=== PATIENT | male | born 1955 | race Caucasian/White ===

== ENCOUNTER 2018-09-10 08:41 | Outpatient (CLI) | payer MEDICAID, SELFPAY ==
[2018-09-10 10:37] LABS: Anion Gap 9.3 mmol/L (3-11); BUN 24 mg/dL (7-18); CO2 26.7 mmol/L (21.0-32.0); CREATININE 0.92 mg/dL (0.70-1.30); Calcium 9.2 mg/dL (8.5-10.1); Chloride 102 mmol/L (98-107); Cholesterol 118 mg/dL (50-200); Glucose 99 mg/dL (70-100); HDL Cholesterol 47 mg/dL (40-60); LDL CHOLESTEROL 59 mg/dL (<100); Potassium 4.4 mmol/L (3.5-5.1); Sodium 138 mmol/L (136-145); Triglyceride 60 mg/dL (30-150)
== END 2018-09-10 09:01 ==
PROVIDERS: PCP Family Medicine; Visit Provider Specialist/Technologist Athletic Trainer
DX: E11.65 Type 2 diabetes mellitus with hyperglycemia (principal); E78.5 Hyperlipidemia, unspecified
CPT/HCPCS: 36415; 80048; 80061; 83721

== ENCOUNTER 2019-04-26 09:24 | Emergency (ER) | payer MEDICARE, MEDICAID, SELFPAY ==
[2019-04-26 09:28] VITALS: BP 163/83; PULSE 66; RESP 16; TEMP 36.3; O2SAT 96
--- NOTE | 2019-04-26 09:33 | ED.GENADUL_ITS ---
Discharge Plan Disposition Patient Disposition: HOME Condition: Stable Discharge Details Chief Complaint: AnimalBite Clinical Impression: Dog bite Primary Care Provider: Marlene Burton ED Provider: China Waterman Home Meds and New Rx's Prescriptions: New amoxicillin-pot clavulanate [Augmentin] 875-125 mg tablet 1 tab PO BID 10 Days Qty: 20 RF: 0 Continued simvastatin 40 mg tablet 40 mg PO QPM RF: 0 metoprolol succinate 50 mg cap,sprinkle,ER 24hr dose pack 50 mg PO DAILY RF: 0 losartan-hydrochlorothiazide [Hyzaar] 100-25 mg tablet 1 tab PO DAILY RF: 0 metformin 500 mg tablet 1,000 mg PO BID RF: 0 lancets [OneTouch Delica Lancets] 33 gauge misc .ROUTE .MEDSUPPLY Qty: 100 RF: 0 blood sugar diagnostic strip .ROUTE .MEDSUPPLY Qty: 10 RF: 0 aspirin 81 MG tablet,chewable 81 mg PO DAILY RF: 0 Discharge Instructions Instructions: Animal Bite (ED) Additional Instructions: Keep wounds clean and dry. Apply topical antibiotic ointment to the area 1-2 times daily. Cover the wound if the risk of contamination. Follow-up with your primary care doctor in 3 days for wound check. Take the antibiotics until finished. Return immediately to the emergency department if you develop any worsening or new concerning symptoms such as fever, increased pain, redness or swelling. Discharge Data Discharge Physician: China Waterman Medical Decision Making 64-year-old male presents with dog bite to right second finger. Dog's immunizations up-to-date. Patient's tetanus up-to-date. There is a well approximated laceration noted on medial aspect of R 2nd finger lateral to nail. No deformity noted. Discussed with patient that with dog bites, it is recommended to obtain x-rays to assess for foreign bodies and also for possible fracture considering finger injury. Patient is declining x-ray at this time. He was informed that without this, we could miss a possible fracture or foreign body, but he states he does not believe he has a fracture or foreign body at this time. Wound was irrigated well, covered with antibiotic ointment and dressing. Patient was offered Motrin or Tylenol here but declined. He was given a prescription for Augmentin. He is instructed to follow-up with his primary care doctor for reevaluation and to return here if worse. HPI General Mode of arrival: ambulatory . Date/Time Provider Initiated Documentation: 04/26/19 09:31 . Limitations to Documentation: no limitations . Information obtained by: patient . HPI Narrative: Patient is a 64-year-old male presents with injury to right second finger after bitten by his new dog today. Patient states he was trying to get a toy away from his dog when the dog bit him . He states the dog is up-to-date on his shots. Tetanus status for patient up-to-date. Patient states the dog is big and denies any small teeth or small foreign body within wound. Related Data Home Medications Medication Instructions Recorded Confirmed aspirin 81 mg PO DAILY 02/12/13 04/26/19 blood sugar diagnostic strips #10 each 04/13/19 04/20/19 lancets 33 gauge #100 each 04/13/19 04/20/19 losartan 100 1 tab PO DAILY 04/13/19 04/26/19 mg-hydrochlorothiazide 25 mg tablet metformin 500 mg tablet 1,000 mg PO BID tab 04/13/19 04/26/19 metoprolol succinate ER 50 mg 50 mg PO DAILY 04/13/19 04/26/19 capsule sprinkle, ext. release 24 hr simvastatin 40 mg tablet 40 mg PO QPM 04/13/19 04/26/19 amoxicillin-pot clavulanate 1 tab PO BID 10 Days #20 tab 04/26/19 [Augmentin] Previous Rx's Medication Instructions Recorded amoxicillin-pot clavulanate 1 tab PO BID 10 Days #20 tab 04/26/19 [Augmentin] Allergies Allergy/AdvReac Type Severity Reaction Status Date / Time lisinopril Allergy Mild dizzy, dry Unverified 04/20/19 11:13 mouth General Stated Complaint: AnimalBite BRIANNE: 4 Review of Systems Review of Systems All systems reviewed & are unremarkable except as noted in HPI and below PFSH Medical History Bilateral shoulder pain (Acute) Hx of hyperlipidemia (Acute) Diabetes (Chronic) GERD (gastroesophageal reflux disease) (Chronic) HTN (hypertension) (Chronic) Surgical History No significant past surgical history (Acute) Family History Mother No problems noted. Father No problems noted. Social History Smoking/Tobacco Use Status: Never Alcohol Intake: current Alcohol Intake frequency: holidays/special occasions only Alcohol type: beer Drug use: Occasionally Substance use type: marijuana Housing: house Number of Children: 0 Communication Needs: None current occupation: Self-Employed, Network Management Specialist Do you think of yourself as: straight/heterosexual What type of physical activity do you participate in: other Details: physically active daily Do you feel safe at home: Yes Do you feel safe in your relationship?: Yes Exam Const General: cooperative, healthy appearing and no acute distress HENMT Head: normal to inspection Mouth: oral mucosae normal Eyes General: appearance normal, both eyes and all related structures Neck Neck: normal visual inspection Resp Effort & Inspection: normal respiratory effort and able to speak in complete sentences Cardio Rate: regular rate Skin General skin exam: no rashes or lesions noted Neuro General: alert, awake and oriented x3 Motor: muscle tone normal throughout Extrem Hand/finger images: 1. 1.5 cm laceration through dermis along the medial aspect of the nailbed extending a few millimeters past the area of the nail. There is mild oozing of blood. There is no foreign body or bony deformity noted. Full range of motion of finger. No injury to nail. Psych Appearance: grossly normal Affect: normal affect Course Vital Signs Temperature 97.3 F L 04/26/19 09:28 Pulse 66 04/26/19 09:28 Respiratory Rate 16 04/26/19 09:28 Blood Pressure 163/83 H 04/26/19 09:28 Pulse Oximetry 96 04/26/19 09:28 Temperature 97.3 F L 04/26/19 09:28 Temperature Source Skin 04/26/19 09:28 Pulse 66 04/26/19 09:28 Respiratory Rate 16 04/26/19 09:28 Respiratory Effort Non-Labored 04/26/19 09:31 Blood Pressure 163/83 H 04/26/19 09:28 Blood Pressure Position Sitting 04/26/19 09:28 Pulse Oximetry 96 04/26/19 09:28 Oxygen Delivery Method Room Air 04/26/19 09:28 Oxygen Flow Rate 0 04/26/19 09:28 Pain Level 4 04/26/19 09:28
[2019-04-26 10:06] VITALS: BP 163/83; PULSE 66; RESP 16; TEMP 36.3; O2SAT 96
--- NOTE | 2019-04-26 10:41 | NUR.NOTE ---
Animal bite reported to [facility] Health Officer, form faxed to [phone].Nursing Note:
== END 2019-04-26 10:14 | disposition home or self-care (01) ==
LOC: ER 10:06
PROVIDERS: Emergency Provider Physician Assistant; PCP Internal Medicine
DX: S61.252A Open bite of right middle finger without damage to nail, initial encounter (principal); W54.0XXA Bitten by dog, initial encounter; Z53.29 Procedure and treatment not carried out because of patient's decision for other reasons
CPT/HCPCS: 99283

== ENCOUNTER 2019-12-09 14:05 | Outpatient (CLI) | payer MEDICARE, MEDICAID, SELFPAY ==
[2019-12-09 15:30] LABS: COMMENT (LAB VIEW ONLY) 90.45 mg/dL; Microalb ug/mg Crea 3.9 ug/mg Cr
[2019-12-09 15:35] LABS: Anion Gap 12.1 mmol/L (3-11); BUN 18 mg/dL (7-18); CO2 25.9 mmol/L (21.0-32.0); CREATININE 0.98 mg/dL (0.70-1.30); Calculated LDL 32 mg/dL (<100); Chloride 102 mmol/L (98-107); Cholesterol 119 mg/dL (<200); Glucose 139 mg/dL (74-106); HDL Cholesterol 38 mg/dL (40-60); Potassium 3.5 mmol/L (3.5-5.1); Sodium 140 mmol/L (136-145); Triglyceride 246 mg/dL (<150)
== END 2019-12-09 14:25 ==
PROVIDERS: PCP Internal Medicine; Visit Provider Internal Medicine
DX: I10 Essential (primary) hypertension (principal); E11.9 Type 2 diabetes mellitus without complications; E78.00 Pure hypercholesterolemia, unspecified
CPT/HCPCS: 36415; 80048; 80061; 82043; 82570

== ENCOUNTER 2020-01-03 10:20 | Outpatient (CLI) | payer MEDICARE, MEDICAID, SELFPAY ==
--- NOTE | 2020-01-03 10:00 | DI.RAD_ITS ---
EXAM: XR SHOULDER LT COMPLETE 2+V CLINICAL HISTORY: pain TECHNIQUE: COMPARISON: XR SHOULDER RT COMPLETE 2+V from 01/03/2020 FINDINGS: Two views were obtained. There is loss of the cartilaginous joint space of glenohumeral joint with v irtually no remaining articular cartilage. There is marked flattening and sclerosis of the adjacent sub chondral humerus and glenoid. Prominent marginal osteophyte formation noted particularly inferio rly. Mild hypertrophic DJD of AC joint noted. IMPRESSION: Severe DJD glenohumeral joint.
--- NOTE | 2020-01-03 10:00 | DI.RAD_ITS ---
EXAM: XR SHOULDER RT COMPLETE 2+V CLINICAL HISTORY: pain TECHNIQUE: COMPARISON: No exams were available for comparison FINDINGS: Two views were obtained. There is loss of the cartilaginous joint space of the glenohumeral joint wi th very prominent marginal osteophyte formation particularly inferiorly, there is also flattening and widening of the articular surfaces of the glenoid and humerus. Mild DJD of the AC joint is noted as well. There is an apparent loose joint body projected inferior to the coracoid. Tiny calcific radiodensity seen adjacent to the proximal humerus probably representing infraspinatus calcific peritendinitis. IMPRESSION: Severe DJD glenohumeral joint. Loose joint body noted.
== END 2020-01-03 10:40 ==
PROVIDERS: PCP Internal Medicine; Referring Provider Internal Medicine; Visit Provider Orthopaedic Surgery
DX: M25.511 Pain in right shoulder (principal); M19.011 Primary osteoarthritis, right shoulder; M24.011 Loose body in right shoulder; M25.512 Pain in left shoulder; M19.012 Primary osteoarthritis, left shoulder
CPT/HCPCS: 99211; 99213; 73030

== ENCOUNTER 2020-12-24 01:56 | Outpatient (CLI) | payer MEDICARE, MEDICAID, SELFPAY ==
[2020-12-24 13:08] LABS: Anion Gap 7.5 mmol/L (3-11); BUN 18 mg/dL (7-18); CO2 28.5 mmol/L (21.0-32.0); CREATININE 0.9 mg/dL (0.70-1.30); Calcium 9.1 mg/dL (8.5-10.1); Calculated LDL 68 mg/dL (<100); Chloride 103 mmol/L (98-107); Cholesterol 138 mg/dL (<200); Glucose 100 mg/dL (74-106); HDL Cholesterol 46 mg/dL (40-60); Potassium 4.3 mmol/L (3.5-5.1); Sodium 139 mmol/L (136-145); Triglyceride 121 mg/dL (<150)
[2020-12-24 13:43] LABS: COMMENT (LAB VIEW ONLY) 143.99 mg/dL; Microalb ug/mg Crea 3.3 ug/mg Cr
== END 2020-12-24 01:57 | disposition home or self-care (01) ==
LOC: LBO 01:56
PROVIDERS: PCP Internal Medicine; Visit Provider Internal Medicine
DX: I10 Essential (primary) hypertension (principal); E11.9 Type 2 diabetes mellitus without complications; E78.00 Pure hypercholesterolemia, unspecified; E78.5 Hyperlipidemia, unspecified
CPT/HCPCS: 36415; 80048; 80061; 82043; 82570

== ENCOUNTER 2021-07-18 02:56 | Outpatient (CLI) | payer MEDICARE, MEDICAID, SELFPAY ==
[2021-07-18 15:19] LABS: COMMENT (LAB VIEW ONLY) 278.61 mg/dL; Microalb ug/mg Crea 4.5 ug/mg Cr
[2021-07-18 15:20] LABS: Anion Gap 10.6 mmol/L (3-11); BUN 18 mg/dL (7-18); CO2 26.4 mmol/L (21.0-32.0); CREATININE 0.9 mg/dL (0.70-1.30); Calcium 9.4 mg/dL (8.5-10.1); Calculated LDL 69 mg/dL (<100); Chloride 103 mmol/L (98-107); Cholesterol 146 mg/dL (<200); Glucose 116 mg/dL (74-106); HDL Cholesterol 47 mg/dL (40-60); Potassium 4.1 mmol/L (3.5-5.1); Sodium 140 mmol/L (136-145); Triglyceride 150 mg/dL (<150)
== END 2021-07-18 02:57 | disposition home or self-care (01) ==
LOC: LBO 02:56
PROVIDERS: PCP Internal Medicine; Visit Provider Internal Medicine
DX: I10 Essential (primary) hypertension (principal); E11.9 Type 2 diabetes mellitus without complications; E78.00 Pure hypercholesterolemia, unspecified; I25.10 Atherosclerotic heart disease of native coronary artery without angina pectoris
CPT/HCPCS: 36415; 80048; 80061; 82043; 82570

== ENCOUNTER → 2023-09-24 08:28 | Outpatient (BNVA) | payer MEDICARE, MEDICAID, SELFPAY | PROVIDERS: PCP Family Medicine; Referring Provider Family Medicine; Visit Provider Podiatrist | DX: B35.1 Tinea unguium (principal); I73.89 Other specified peripheral vascular diseases; E11.8 Type 2 diabetes mellitus with unspecified complications; L84 Corns and callosities | CPT/HCPCS: 11720 ==

== ENCOUNTER → 2023-10-15 14:32 | Outpatient (BNVA) | payer MEDICARE, MEDICAID, SELFPAY | PROVIDERS: PCP Family Medicine; Referring Provider Podiatrist; Visit Provider Physical Therapy Assistant | DX: I73.9 Peripheral vascular disease, unspecified (principal); E11.9 Type 2 diabetes mellitus without complications | CPT/HCPCS: 93922 ==

== ENCOUNTER → 2024-04-14 14:48 | Outpatient (BNVA) | payer MEDICARE, MEDICAID, SELFPAY | PROVIDERS: PCP Family Medicine; Referring Provider Family Medicine; Visit Provider Podiatrist | DX: E11.8 Type 2 diabetes mellitus with unspecified complications (principal); I73.9 Peripheral vascular disease, unspecified; B35.1 Tinea unguium; L84 Corns and callosities; R09.89 Other specified symptoms and signs involving the circulatory and respiratory systems; L65.9 Nonscarring hair loss, unspecified; R23.8 Other skin changes; L60.3 Nail dystrophy; L60.8 Other nail disorders; R60.0 Localized edema; L85.1 Acquired keratosis [keratoderma] palmaris et plantaris | CPT/HCPCS: 11719; 11720 ==

== ENCOUNTER 2024-09-15 03:43 | Outpatient (CLI) | payer MEDICARE, MEDICAID, SELFPAY ==
[2024-09-15 15:33] LABS: ALT 21 U/L (16-63); AST 18 U/L (15-37); Albumin 3.6 g/dL (3.4-5.0); Alkaline Phosphatase 85 U/L (46-116); Bilirubin, Direct 0.1 mg/dL (0.0-0.2); Bilirubin, Total 0.33 mg/dL (0.2-1.0); Total Protein 8.9 g/dL (6.4-8.2)
== END 2024-09-15 03:44 | disposition home or self-care (01) ==
LOC: LBO 03:43
PROVIDERS: PCP Family Medicine; Referring Provider Family Medicine; Visit Provider Family Medicine
DX: B35.1 Tinea unguium (principal)
CPT/HCPCS: 36415; 80076

== ENCOUNTER → 2024-11-22 09:03 | Outpatient (BNVA) | payer MEDICARE, MEDICAID, SELFPAY | PROVIDERS: PCP Family Medicine; Referring Provider Family Medicine; Visit Provider Podiatrist | DX: E11.8 Type 2 diabetes mellitus with unspecified complications (principal); I73.89 Other specified peripheral vascular diseases; B35.1 Tinea unguium; L84 Corns and callosities; R09.89 Other specified symptoms and signs involving the circulatory and respiratory systems; L65.9 Nonscarring hair loss, unspecified; R23.8 Other skin changes; R60.0 Localized edema; L85.8 Other specified epidermal thickening | CPT/HCPCS: 11719; 11720 ==

== ENCOUNTER → 2025-03-21 09:20 | Outpatient (BNVA) | payer MEDICARE, MEDICAID, SELFPAY | PROVIDERS: PCP Family Medicine; Referring Provider Family Medicine; Visit Provider Podiatrist | DX: E11.9 Type 2 diabetes mellitus without complications (principal); I73.89 Other specified peripheral vascular diseases; B35.1 Tinea unguium; L84 Corns and callosities; L60.3 Nail dystrophy; R09.89 Other specified symptoms and signs involving the circulatory and respiratory systems; L65.9 Nonscarring hair loss, unspecified; R23.8 Other skin changes; R60.0 Localized edema; L60.2 Onychogryphosis; L85.8 Other specified epidermal thickening | CPT/HCPCS: 11719; 11720 ==

== ENCOUNTER 2025-05-16 09:07 | Outpatient (CLI) | payer MEDICARE, MEDICAID, SELFPAY ==
--- NOTE | 2025-05-16 09:00 | DI.RAD_ITS ---
Exam(s) XR KNEE RT 3V AP,LAT,BETTY EXAM: XR KNEE RT 3V AP,LAT,BETTY CLINICAL HISTORY: R/O fracture, MENISCAL INJURY, SPRAIN OF UNSPEC KNEE, S83.8X9A. TECHNIQUE: 2D digital imaging was performed. COMPARISON: No exams were available for comparison FINDINGS: 3 views No evidence of fracture. There appears to be a very small amount of increased joint fluid here. No large joint effusion evident. There is edema in the subcutaneous soft tissues anterior to the patellar ligament. There is no evidence of patellar fracture or displacement. There is no joint space shadi rowing. There are no osteochondral defects. Bone density is age-appropriate and there are no significant osseous lesions. IMPRESSION: No acute osseous findings nor degenerative changes. Tiny amount of increased joint fluid is evident. DATA REPOSITORY: RADIATION DOSE DELIVERED:
== END 2025-05-16 09:27 ==
LOC: DI 09:07
PROVIDERS: PCP Family Medicine; Visit Provider Family Medicine
DX: S83.8X1A Sprain of other specified parts of right knee, initial encounter (principal); X58.XXXA Exposure to other specified factors, initial encounter
CPT/HCPCS: 73562

== ENCOUNTER 2025-05-22 12:51 | Emergency (ER) | payer MEDICARE, MEDICAID, SELFPAY ==
[2025-05-22 12:54] VITALS: BP 182/90; PULSE 70; RESP 14; TEMP 36.8; O2SAT 98
--- NOTE | 2025-05-22 13:00 | RT.EKG_ITS ---
APPROVED REPORT Exam: Resting ECG Reason for Exam: epigastric pain Patient Location: E HR:64 bpm ECG Measurements Heart Rate 64 AXIS GA 189 P 50 QRSd 85 QRS 60 QT 419 T 101 QTc 434 Conclusion Sinus rhythm...normal P axis, V-rate 60- 99 Nonspecific repol abnormality, diffuse leads...ST dep, T flat/neg, ant/lat/inf No Occlusion [place]
[2025-05-22 14:03] LABS: Abs Immature Grans 0.04 10^3/uL (0.0-0.06); HCT 44.7 % (40.0-50.0); HGB 15.0 g/dL (13.5-17.5); Immature Grans % 0.4 %; MCH 28.7 pg (27.0-33.0); MCHC 33.6 % (32.0-36.0); MCV 86 fL (80-95); MPV 9.8 fL (8.0-11.0); Platelet Count 346 10^3/uL (130-400); RBC 5.22 10^6/uL (4.36-5.78); RDW 12.6 % (11.8-14.1); RDW-SD 39.0 fL; WBC 11.23 10^3/uL (4.4-10.8)
[2025-05-22 14:19] VITALS: BP 182/90; PULSE 70; RESP 14; TEMP 36.8; O2SAT 98
--- NOTE | 2025-05-22 14:30 | DI.CT_ITS ---
Exam(s) CT ABDOMEN PELVIS W EXAM: CT ABDOMEN PELVIS W CLINICAL HISTORY: epigastric pain, LLQ pain, nausea. TECHNIQUE: Imaging Protocol: Axial computed tomography images with coronal and sagittal reformatted images were created and reviewed CONTRAST MATERIAL: Intravenous: Omnipaque-350 100cc Oral: None COMPARISON: No exams were available for comparison FINDINGS: VISUALIZED LUNG BASES: No nodules nor pleural effusions evident. ABDOMEN: GI: There is no ascites. There is a tiny hiatal hernia. There remainder of the stomach appears unremarkable. No evidence of small-bowel obstruction. No free air. No abscess. No evidence of acute appendicitis nor acute diverticulitis. LIVER: There are no focal hepatic lesions evident. No dilated intrahepatic ducts. GALLBLADDER/BILIARY: No obvious gallbladder pathology. CBD is not dilated. PANCREAS: No evidence of pancreatic mass nor dilatation of the pancreatic duct. SPLEEN: Spleen size normal. Calcification in the medial aspect of the anterior spleen is noted at the level the capsule. No ominous splenic lesions. Splenic and portal veins are patent. ADRENALS: There are no significant adrenal masses. KIDNEYS:Right kidney unremarkable. There cysts in the left kidney, the largest measuring 3.5 cm. No solid renal masses. No calculi nor hydronephrosis.. ABDOMINAL AORTA: Calcified but not enlarged. Iliac arteries also calcified but not enlarged. LYMPH NODES:There is no retroperitoneal nor paraaortic adenopathy. ABDOMINAL WALL: There is a fat only containing umbilical hernia sac. Does not contain bowel loops. GI: There is no evidence of bowel obstruction, free air, nor abscess. PELVIS: GI: No evidence of appendicitis.No evidence of sigmoid diverticulitis. LYMPH NODES: There is no intrapelvic nor inguinal adenopathy. REPRODUCTIVE: Prostate size normal. Seminal vesicles unremarkable. URINARY BLADDER: No calculi nor obvious masses evident OSSEOUS: No fractures and no significant osseous lesions. Chronic disc space narrowing L5-S1. No listhesis. No pars defects. IMPRESSION: 1. There is a midline fat containing umbilical hernia. The hernia sac does not contain bowel loops. There is no bowel obstruction. 2. No evidence of pancreatitis, diverticulitis, or appendicitis 3. Very small hiatal hernia. Report called by myself to ER provider 05/22/2023 at 4:30 p.m. RADIATION DOSE DELIVERED: 928.11mGy.cm Total DLP DATA REPOSITORY: All CT scans at this facility are submitted to the National Radiology Data Registry (NRDR) Dose Index Registry (DIR) with the [employer] (ACR). RADIATION OPTIMIZATION: All CT scans at this facility use at least one of these dose optimization techniques: automated exposure control; mA and/or kV adjustment per patient size (includes targeted exams where dose is matched to clinical indication); or iterative reconstruction.
--- NOTE | 2025-05-22 14:30 | DI.RAD_ITS ---
Exam(s) XR CHEST 2V PA LATERAL EXAM: XR CHEST 2V PA LATERAL CLINICAL HISTORY: epigastric pain. TECHNIQUE: 2D digital imaging was performed. COMPARISON: No exams were available for comparison FINDINGS: 2 views: Heart size is normal. The mediastinum is not widened. Lungs are clear. No infiltrates nor pleural effusions. IMPRESSION: No acute pulmonary findings. DATA REPOSITORY: RADIATION DOSE DELIVERED:
[2025-05-22 14:38] LABS: ALT 24 U/L (16-63); AST 15 U/L (15-37); Albumin 4.2 g/dL (3.4-5.0); Alkaline Phosphatase 74 U/L (46-116); Anion Gap 12.8 mmol/L (3-11); BUN 14 mg/dL (7-18); Bilirubin, Total 0.4 mg/dL (0.2-1.0); CO2 25.2 mmol/L (21.0-32.0); Calcium 9.6 mg/dL (8.5-10.1); Chloride 101 mmol/L (98-107); Estimated GFR 94.62 (mL/min/1.73m2); Glucose 179 mg/dL (74-106); Lipase 26 U/L (<78); Potassium 3.3 mmol/L (3.5-5.1); Sodium 139 mmol/L (136-145); Total Protein 8.2 g/dL (6.4-8.2)
[2025-05-22 14:40] LABS: Troponin I 11 ng/L (<or=76)
[2025-05-22] MEDS: ACETAMINOPHEN 500 MG/50 ML BAG 200 MG IVPB (14:58)
[2025-05-22] MEDS: FAMOTIDINE 20 MG in Normal Saline 100 ML 400 MG IVPB (14:58)
[2025-05-22] MEDS: Ondansetron 4 MG/2 ML VIAL IVP (14:58)
[2025-05-22] MEDS: Pantoprazole 40 MG VIAL IVP (14:58)
[2025-05-22 15:36] LABS: Troponin I 16 ng/L (<or=76)
--- NOTE | 2025-05-22 15:48 | W.ED.GENAD ---
Discharge Plan Disposition Patient Disposition: Home Condition: Stable Discharge Details Clinical Impression: Abdominal pain of unknown cause Primary Care Provider: Boris Carranza ED Provider: Watson Phillips Home Meds and New Rx's Prescriptions: New famotidine 20 mg tablet 20 mg PO BID 21 Days Qty: 42 0RF ondansetron 4 mg tablet,disintegrating 4 mg PO Q8H PRNQty: 30 0RF Continued urea 40 % cream 1 applic topical DAILY Qty: 85 6RF nystatin [Nyamyc] 100,000 unit/gram powder 1 applic topical TID PRN (Reason: tinea) Qty: 60 1RF Rx Instructions: apply to rash in axillae TID until rash gone mupirocin 2 % ointment 1 applic topical BID-TID Qty: 15 0RF Rx Instructions: May substitute with cream if less expensive; apply thin layer until area/lesion resolved ketoconazole 2 % cream 1 applic topical DAILY Qty: 120 6RF Rx Instructions: Apply to toenails once daily (DME) blood sugar diagnostic Strip See Dose Instructions .ROUTE .MEDSUPPLY Qty: 100 3RF Rx Instructions: to test daily E11.9 dispense One Touch Ultra Blue (DME) lancets [OneTouch Delica Lancets] 33 gauge misc See Dose Instructions .ROUTE .MEDSUPPLY Qty: 100 3RF Rx Instructions: to test daily E11.9 metformin 750 mg tablet extended release 24 hr 1,500 mg PO DAILY Qty: 180 3RF aspirin 81 mg tablet,chewable 81 mg PO DAILY Qty: 90 3RF losartan-hydrochlorothiazide [Hyzaar] 100-25 mg tablet 1 tab PO DAILY Qty: 90 3RF simvastatin 40 mg tablet 40 mg PO QPM Qty: 90 3RF Discontinued naproxen 500 mg tablet 500 mg PO BID PRN (Reason: pain) Qty: 60 0RF Discharge Instructions Instructions: High Potassium Diet, Famotidine, Ondansetron, Abdominal Pain, Adult ED, Upper endoscopy Additional Instructions: You were seen in the ER for your abdominal pain, and possible dark stools- your hemoglobin is stable indicating no severe GI bleeding. You have a simple umbilical hernia that does not contain bowel on CT. You had mildly low potassium on your labwork which can be corrected by a high potassium diet. I have sent prescriptions for a nausea medication called ondansetron to use as needed for nausea- take 20-30 mins before oral intake. I have also sent 3 weeks of famotidine (Pepcid), this can relieve pain and minor bleeding from perhaps a small ulcer- if you take this diligently and your symptoms get better that is the most likely cause. Please seek a referral from your PCP to general surgery or GI practice for upper endoscopy. Please return for severe increase in pain, dark stools, dizziness, weakness, chest pain, intractable nausea/vomiting or any other emergent concerns. Referrals: [facility] [Provider Group] Boris Carranza DO [Primary Care Provider, Medicine] Discharge Data Discharge Date/Time-TO BE ENTERED AT DEPARTURE: 05/22/25 17:11 HPI General Date/Time Provider Initiated Documentation: 05/22/25 13:01. HPI Narrative: 70-year-old male presents with stomach pain since night (2200 hours) after taking Naprosyn. States he was started on Naprosyn on the for chronic back pain. Has taken several doses but on it seemed to upset his stomach. Denies history of ulcers reports dark stools, diarrhea, and nausea without vomiting. Denies fever, chills, and history of alcoholism. Takes metformin for hypercholesterolemia. Related Data Home Medications ?Medication ?Instructions ?Recorded ?Confirmed blood sugar diagnostic #100 ea 09/29/19 05/16/25 lancets 33 gauge (OneTouch Delica #100 ea 09/29/19 05/16/25 Lancets) aspirin 81 mg chewable tablet 81 mg PO DAILY #90 tabs 06/14/24 05/16/25 metformin 750 mg tablet,extended 1,500 mg (2 x 750 mg) PO DAILY 06/14/24 05/16/25 release 24 hr #180 tabs nystatin 100,000 unit/gram topical 1 applic topical TID PRN tinea #60 07/14/24 05/16/25 powder ([facility]) grams urea 40 % topical cream 1 applic topical DAILY #85 grams 07/14/24 05/16/25 mupirocin 2 % topical ointment 1 applic topical BID-TID #15 grams 09/07/24 05/16/25 ketoconazole 2 % topical cream 1 applic topical DAILY #120 grams 11/22/24 05/16/25 losartan 100 1 tab PO DAILY #90 tabs 03/16/25 05/16/25 mg-hydrochlorothiazide 25 mg tablet (Hyzaar) simvastatin 40 mg tablet 40 mg PO QPM #90 tabs 03/16/25 05/16/25 famotidine 20 mg tablet 20 mg PO BID 3 weeks #42 tabs 05/22/25 ondansetron 4 mg disintegrating 4 mg PO Q8H PRN #30 tabs 05/22/25 tablet Previous Rx's ?Medication ?Instructions ?Recorded blood sugar diagnostic #100 ea 09/29/19 lancets 33 gauge (OneTouch Delica #100 ea 09/29/19 Lancets) aspirin 81 mg chewable tablet 81 mg PO DAILY #90 tabs 06/14/24 metformin 750 mg tablet,extended 1,500 mg (2 x 750 mg) PO DAILY 06/14/24 release 24 hr #180 tabs nystatin 100,000 unit/gram topical 1 applic topical TID PRN tinea #60 07/14/24 powder ([facility]) grams urea 40 % topical cream 1 applic topical DAILY #85 grams 07/14/24 mupirocin 2 % topical ointment 1 applic topical BID-TID #15 grams 09/07/24 ketoconazole 2 % topical cream 1 applic topical DAILY #120 grams 11/22/24 losartan 100 1 tab PO DAILY #90 tabs 03/16/25 mg-hydrochlorothiazide 25 mg tablet (Hyzaar) simvastatin 40 mg tablet 40 mg PO QPM #90 tabs 03/16/25 famotidine 20 mg tablet 20 mg PO BID 3 weeks #42 tabs 05/22/25 ondansetron 4 mg disintegrating 4 mg PO Q8H PRN #30 tabs 05/22/25 tablet Allergies Allergy/AdvReac Type Severity Reaction Status Date / Time lisinopril Allergy Mild dizzy, dry Verified 05/22/25 13:01 mouth naproxen AdvReac Intermediate Other (See Verified 05/23/25 11:08 Comment) General Stated Complaint: Abd Prob BRIANNE: 3 Exam Narrative Exam Narrative: Patient is alert and oriented he is in no acute distress he has some periumbilical tenderness with an easily reducible umbilical hernia no rebound or guarding no CVA tenderness distal pulses are intact 1+ edema to bilateral lower extremities lungs are clear to auscultation cardiac rate rhythm regular no rebound or guarding Course Vital Signs Vital signs: Vital Signs Temperature 36.8 C 05/22/25 12:54 Pulse 70 05/22/25 12:54 Respiratory Rate 14 05/22/25 12:54 Blood Pressure 182/90 H 05/22/25 12:54 Pulse Oximetry 98 05/22/25 12:54 Temperature 36.8 C 05/22/25 14:19 Temperature Source Oral 05/22/25 14:19 Pulse 70 05/22/25 14:19 Respiratory Rate 14 05/22/25 14:19 Blood Pressure 182/90 H 05/22/25 14:19 Pulse Oximetry 98 05/22/25 14:19 Oxygen Delivery Method Room Air 05/22/25 14:19 Oxygen Flow Rate 0 05/22/25 14:19 Pain Level 5 05/22/25 14:19 Lab/Test Results Lab/Test Results: Laboratory Tests Range/Units 05/22/25 05/22/25 13:55 14:55 WBC (4.4-10.8) 10^3/uL 11.23 H RBC (4.36-5.78) 10^6/uL 5.22 Hgb (13.5-17.5) g/dL 15.0 Hct (40.0-50.0) % 44.7 MCV (80-95) fL 86 MCH (27.0-33.0) pg 28.7 MCHC (32.0-36.0) % 33.6 RDW (11.8-14.1) % 12.6 Plt Count (130-400) 10^3/uL 346 MPV (8.0-11.0) fL 9.8 Immature Gran % % 0.4 Neutrophils % % 83.9 Lymphocytes % % 11.8 Monocytes % % 3.5 Eosinophils % % 0.0 Basophils % % 0.4 Nucleated RBC % (0.0-0.3) % 0.0 Absolute Neutrophils (1.2-6.7) 10^3/uL 9.42 H Absolute Lymphocytes (1.2-3.4) 10^3/uL 1.33 Absolute Monocytes (0.1-0.8) 10^3/uL 0.39 Absolute Eosinophils (0.0-0.7) 10^3/uL 0.00 Absolute Basophils (0.0-0.2) 10^3/uL 0.04 Sodium (136-145) mmol/L 139 Potassium (3.5-5.1) mmol/L 3.3 L Chloride (98-107) mmol/L 101 Carbon Dioxide (21.0-32.0) mmol/L 25.2 Anion Gap (3-11) mmol/L 12.8 H BUN (7-18) mg/dL 14 Creatinine (0.70-1.30) mg/dL 0.8 Est GFR (CKD-EPI 2020) (mL/min/1.73m2) 94.62 Glucose (74-106) mg/dL 179 H Calcium (8.5-10.1) mg/dL 9.6 Total Bilirubin (0.2-1.0) mg/dL 0.4 AST (15-37) U/L 15 ALT (16-63) U/L 24 Alkaline Phosphatase (46-116) U/L 74 Troponin I (<or=76) ng/L 11 16 Total Protein (6.4-8.2) g/dL 8.2 Albumin (3.4-5.0) g/dL 4.2 Lipase (<78) U/L 26 ABO/Rh A Positive Antibody Screen NEGATIVE Medical Decision Making CBC reassuring. No abnormal hemoglobin and hematocrit. Potassium 3.3. Initial Assessment: 70-year-old male with stomach pain since night after taking Naprosyn, dark stools, diarrhea, and nausea without vomiting. No history of alcoholism. ED Course: - CBC reassuring, no abnormal hemoglobin and hematocrit. - Potassium 3.3, will supplement. - Protonix and antiemetics administered. - CT abdomen and pelvis pending. Care transitioned to Wilmer Phillips Final Assessment: Patient presented with abdominal pain, dark stools, diarrhea, and nausea without vomiting. CBC results were reassuring, and potassium levels were low at 3.3. Treatment included potassium supplementation, Protonix, and antiemetics. Awaiting results of CT abdomen and pelvis. Clinical Impression: - Abdominal pain MDM Components Evaluation: - Number of Differential Diagnoses or Management Options: Abdominal pain - Amount and Complexity of Data Reviewed: CBC, CT abdomen and pelvis - Risk of Complication and Morbidity or Mortality: Low suspicion for significant complications based on current findings. PFSH All Active Problems (Updated 05/22/25 @ 16:39 by GUERRERO Gaitan) Abdominal pain of unknown cause (Acute) Meniscal injury (Acute) Splinter (Acute) Blepharitis of eyelid of left eye (Acute) Corns and callosities (Acute) PVD (peripheral vascular disease) (Chronic) Onychomycosis (Acute) Sees Dr Jayla casper Pigmented skin lesion (Acute) Nail dystrophy (Acute) Marijuana dependence (Chronic) daily use if available Depression (Chronic) Phobia, unspecified (Chronic) fear of mail. 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 Father , never met biological No problems noted. Social History (Updated 04/14/25 @ 14:30 by Molly King LPN) Smoking/Tobacco Use Status: Never Smoking risk assessment performed?: Yes Alcohol Intake: current Alcohol Intake frequency: holidays/special occasions only Alcohol type: beer Drug use: Occasionally Substance use type: marijuana Adopted: Yes Caregiver/Support person: No Foster care: No Household members: none Housing: house Communication Needs: Hard of Hearing Education Level: vocational Do you need help understanding health information?: Rarely current occupation: Self-Employed, Locker Attendant Pets and animals: No (His dog recently) Do you think of yourself as: straight/heterosexual Current gender identity: male What is your relationship status?: refused to answer How often do you talk on the phone with friends or family?: decline to answer How often do you get together with friends or relatives?: decline to answer How often do you attend yazdanism or rastafarian services?: decline to answer Do you belong to any clubs or organized social groups?: decline to answer Panel score (0-1 are the most socially isolated patients): 0 What type of physical activity do you participate in: other Details: 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
[2025-05-22] MEDS: Normal Saline - Diluent 50 ML VIAL IJ (16:05)
[2025-05-22] MEDS: Omnipaque 350 MG/ML 100 ML BTL IJ (16:06)
--- NOTE | 2025-05-22 16:32 | ED.PROG_ITS ---
Date of service: 05/22/25 Time of Service: 16:33 Medical Decision Making This dictation utilizes [id number] dictation software and may contain unedited grammatical errors. Patient seen in sign-out from Allegra Garza PA-C, please see her complete note. Essentially this 70 y/o M is here for abdominal pain since night- has been taking regular doses of Naproexen, now questioning whether he has dark stools, endorses nausea- labs reassuring with stable HgB for 5 day onset, and no active vomiting, awaiting CT ABD/Pelvis results. Has a known reducible umbilical hernia. Patients' medical history: HTN, hyperlipidemia, GERD, t2DM, CAD. Family and social history: Noncontributory. Differential / pathologies of concern include GERD, PUD, esophagitis, bowel containing hernia, upper GI bleeding. Diagnostic studies of: -reviewed prior labs- nonspecific WBC count 11.2, mild hypokalemia 3.3, serial trop negative, lipase neg, HgB WNL. Interventions of: -ondansetron PO and Rx, famotidine Rx for gastritis, 40mEq PO potassium, recommend high potassium diet. ED Course/Assessment/Plan: 70-year-old male seen for gastritis, CT is negative for any acute findings, I did prescribe him ondansetron as well as recommended famotidine, recommend high potassium diet and seeking a PCP referral to general surgery for upper endoscopy, strict return criteria for any worsening of dark stools, intractable nausea or vomiting, severe increased abdominal pain, any coffee-ground or hematemesis. Findings not consistent with GI hemorrhage, incarcerated hernia, dangerous electrolyte derangement, booerhave syndrome, jose gudino tear. Disposition of Abdominal Pain of Unknown Cause. Patient verbalized understanding of the plan and return to ED criteria and engaged in shared decision making. Medical Records Medical records reviewed: Yes I reviewed the patient's medical records. Imaging Data Radiologic Study: Attestation: I personally reviewed and interpreted this imaging study as follows: Imaging: X-Ray Radiologist's impression: EXAM: XR CHEST 2V PA LATERAL CLINICAL HISTORY: epigastric pain. TECHNIQUE: 2D digital imaging was performed. COMPARISON: No exams were available for comparison FINDINGS: 2 views: Heart size is normal. The mediastinum is not widened. Lungs are clear. No infiltrates nor pleural effusions. IMPRESSION: No acute pulmonary findings. Radiologic Study #2: Attestation: I personally reviewed and interpreted this imaging study as follows: Imaging: CT Scan Radiologist's impression: EXAM: CT ABDOMEN PELVIS W CLINICAL HISTORY: epigastric pain, LLQ pain, nausea. TECHNIQUE: Imaging Protocol: Axial computed tomography images with coronal and sagittal reformatted images were created and reviewed CONTRAST MATERIAL: Intravenous: Omnipaque-350 100cc Oral: None COMPARISON: No exams were available for comparison FINDINGS: VISUALIZED LUNG BASES: No nodules nor pleural effusions evident. ABDOMEN: GI: There is no ascites. There is a tiny hiatal hernia. There remainder of the stomach appears unremarkable. No evidence of small-bowel obstruction. No free air. No abscess. No evidence of acute appendicitis nor acute diverticulitis. LIVER: There are no focal hepatic lesions evident. No dilated intrahepatic ducts. GALLBLADDER/BILIARY: No obvious gallbladder pathology. CBD is not dilated. PANCREAS: No evidence of pancreatic mass nor dilatation of the pancreatic duct. SPLEEN: Spleen size normal. Calcification in the medial aspect of the anterior spleen is noted at the level the capsule. No ominous splenic lesions. Splenic and portal veins are patent. ADRENALS: There are no significant adrenal masses. KIDNEYS:Right kidney unremarkable. There cysts in the left kidney, the largest measuring 3.5 cm. No solid renal masses. No calculi nor hydronephrosis.. ABDOMINAL AORTA: Calcified but not enlarged. Iliac arteries also calcified but not enlarged. LYMPH NODES:There is no retroperitoneal nor paraaortic adenopathy. ABDOMINAL WALL: There is a fat only containing umbilical hernia sac. Does not contain bowel loops. GI: There is no evidence of bowel obstruction, free air, nor abscess. PELVIS: GI: No evidence of appendicitis.No evidence of sigmoid diverticulitis. LYMPH NODES: There is no intrapelvic nor inguinal adenopathy. REPRODUCTIVE: Prostate size normal. Seminal vesicles unremarkable. URINARY BLADDER: No calculi nor obvious masses evident OSSEOUS: No fractures and no significant osseous lesions. Chronic disc space narrowing L5-S1. No listhesis. No pars defects. IMPRESSION: 1. There is a midline fat containing umbilical hernia. The hernia sac does not contain bowel loops. There is no bowel obstruction. 2. No evidence of pancreatitis, diverticulitis, or appendicitis 3. Very small hiatal hernia. Report called by myself to ER provider 05/22/2023 at 4:30 p.m. Lab Data Lab results reviewed: Yes I reviewed the patient's lab results. Labs: Laboratory Tests Range/Units 05/22/25 05/22/25 13:55 14:55 WBC (4.4-10.8) 10^3/uL 11.23 H RBC (4.36-5.78) 10^6/uL 5.22 Hgb (13.5-17.5) g/dL 15.0 Hct (40.0-50.0) % 44.7 MCV (80-95) fL 86 MCH (27.0-33.0) pg 28.7 MCHC (32.0-36.0) % 33.6 RDW (11.8-14.1) % 12.6 Plt Count (130-400) 10^3/uL 346 MPV (8.0-11.0) fL 9.8 Immature Gran % % 0.4 Neutrophils % % 83.9 Lymphocytes % % 11.8 Monocytes % % 3.5 Eosinophils % % 0.0 Basophils % % 0.4 Nucleated RBC % (0.0-0.3) % 0.0 Absolute Neutrophils (1.2-6.7) 10^3/uL 9.42 H Absolute Lymphocytes (1.2-3.4) 10^3/uL 1.33 Absolute Monocytes (0.1-0.8) 10^3/uL 0.39 Absolute Eosinophils (0.0-0.7) 10^3/uL 0.00 Absolute Basophils (0.0-0.2) 10^3/uL 0.04 Sodium (136-145) mmol/L 139 Potassium (3.5-5.1) mmol/L 3.3 L Chloride (98-107) mmol/L 101 Carbon Dioxide (21.0-32.0) mmol/L 25.2 Anion Gap (3-11) mmol/L 12.8 H BUN (7-18) mg/dL 14 Creatinine (0.70-1.30) mg/dL 0.8 Est GFR (CKD-EPI 2020) (mL/min/1.73m2) 94.62 Glucose (74-106) mg/dL 179 H Calcium (8.5-10.1) mg/dL 9.6 Total Bilirubin (0.2-1.0) mg/dL 0.4 AST (15-37) U/L 15 ALT (16-63) U/L 24 Alkaline Phosphatase (46-116) U/L 74 Troponin I (<or=76) ng/L 11 16 Total Protein (6.4-8.2) g/dL 8.2 Albumin (3.4-5.0) g/dL 4.2 Lipase (<78) U/L 26 ABO/Rh A Positive Antibody Screen NEGATIVE Discharge Plan Disposition Patient Disposition: Home Condition: Stable Discharge Details Clinical Impression: Abdominal pain of unknown cause Primary Care Provider: Boris Carranza ED Provider: Watson Phillips Home Meds and New Rx's Prescriptions: New famotidine 20 mg tablet 20 mg PO BID 21 Days Qty: 42 0RF ondansetron 4 mg tablet,disintegrating 4 mg PO Q8H PRNQty: 30 0RF Continued urea 40 % cream 1 applic topical DAILY Qty: 85 6RF nystatin [Nyamyc] 100,000 unit/gram powder 1 applic topical TID PRN (Reason: tinea) Qty: 60 1RF Rx Instructions: apply to rash in axillae TID until rash gone mupirocin 2 % ointment 1 applic topical BID-TID Qty: 15 0RF Rx Instructions: May substitute with cream if less expensive; apply thin layer until area/lesion resolved ketoconazole 2 % cream 1 applic topical DAILY Qty: 120 6RF Rx Instructions: Apply to toenails once daily (DME) blood sugar diagnostic Strip See Dose Instructions .ROUTE .MEDSUPPLY Qty: 100 3RF Rx Instructions: to test daily E11.9 dispense One Touch Ultra Blue (DME) lancets [OneTouch Delica Lancets] 33 gauge misc See Dose Instructions .ROUTE .MEDSUPPLY Qty: 100 3RF Rx Instructions: to test daily E11.9 metformin 750 mg tablet extended release 24 hr 1,500 mg PO DAILY Qty: 180 3RF aspirin 81 mg tablet,chewable 81 mg PO DAILY Qty: 90 3RF losartan-hydrochlorothiazide [Hyzaar] 100-25 mg tablet 1 tab PO DAILY Qty: 90 3RF simvastatin 40 mg tablet 40 mg PO QPM Qty: 90 3RF Discontinued naproxen 500 mg tablet 500 mg PO BID PRN (Reason: pain) Qty: 60 0RF Discharge Instructions Instructions: High Potassium Diet, Famotidine, Ondansetron, Abdominal Pain, Adult ED, Upper endoscopy Additional Instructions: You were seen in the ER for your abdominal pain, and possible dark stools- your hemoglobin is stable indicating no severe GI bleeding. You have a simple umbilical hernia that does not contain bowel on CT. You had mildly low potassium on your labwork which can be corrected by a high potassium diet. I have sent prescriptions for a nausea medication called ondansetron to use as needed for nausea- take 20-30 mins before oral intake. I have also sent 3 weeks of famotidine (Pepcid), this can relieve pain and minor bleeding from perhaps a small ulcer- if you take this diligently and your symptoms get better that is the most likely cause. Please seek a referral from your PCP to general surgery or GI practice for upper endoscopy. Please return for severe increase in pain, dark stools, dizziness, weakness, chest pain, intractable nausea/vomiting or any other emergent concerns. Referrals: [facility] [Provider Group] Boris Carranza DO [Primary Care Provider, Medicine] Discharge Data Discharge Date/Time-TO BE ENTERED AT DEPARTURE: 05/22/25 17:11
[2025-05-22] MEDS: Potassium Chloride 20 MEQ TABCR 40 MEQ PO (16:57)
[2025-05-22] MEDS: Ondansetron O.D.T. 4 MG TABEF PO (16:57)
[2025-05-22] MEDS: Normal Saline 1,000 ML 1000 ML IV (17:09)
== END 2025-05-22 17:11 | disposition home or self-care (01) ==
PROVIDERS: Physician Assistant; Emergency Provider Physician Assistant; PCP Family Medicine
DX: R10.9 Unspecified abdominal pain (principal); R11.11 Vomiting without nausea; R19.7 Diarrhea, unspecified; K92.1 Melena; I10 Essential (primary) hypertension; Z86.79 Personal history of other diseases of the circulatory system
CPT/HCPCS: 99284; 99285; 96375; 36415; 00123; 80053; 83690; 86850; 86900; 86901; 93005; 96365; 96366; 96368; 71046; 74177; 84484; 85025; 93010; J0131; J2405; J2470; J3490

== ENCOUNTER 2025-06-05 10:53 | Emergency (ER) | payer MEDICARE, MEDICAID, SELFPAY ==
[2025-06-05 10:54] VITALS: BP 173/95; PULSE 70; RESP 14; TEMP 36.5; O2SAT 98
--- NOTE | 2025-06-05 11:27 | ED.GENADUL_ITS ---
Discharge Plan Disposition Patient Disposition: Home Condition: Stable Discharge Details Clinical Impression: Back pain Primary Care Provider: Boris Carranza ED Provider: Rc Thornton Home Meds and New Rx's Prescriptions: Continued urea 40 % cream 1 applic topical DAILY Qty: 85 6RF nystatin [Nyamyc] 100,000 unit/gram powder 1 applic topical TID PRN (Reason: tinea) Qty: 60 1RF Rx Instructions: apply to rash in axillae TID until rash gone mupirocin 2 % ointment 1 applic topical BID-TID Qty: 15 0RF Rx Instructions: May substitute with cream if less expensive; apply thin layer until area/lesion resolved ketoconazole 2 % cream 1 applic topical DAILY Qty: 120 6RF Rx Instructions: Apply to toenails once daily (DME) blood sugar diagnostic Strip See Dose Instructions .ROUTE .MEDSUPPLY Qty: 100 3RF Rx Instructions: to test daily E11.9 dispense One Touch Ultra Blue (DME) lancets [OneTouch Delica Lancets] 33 gauge misc See Dose Instructions .ROUTE .MEDSUPPLY Qty: 100 3RF Rx Instructions: to test daily E11.9 metformin 750 mg tablet extended release 24 hr 1,500 mg PO DAILY Qty: 180 3RF aspirin 81 mg tablet,chewable 81 mg PO DAILY Qty: 90 3RF losartan-hydrochlorothiazide [Hyzaar] 100-25 mg tablet 1 tab PO DAILY Qty: 90 3RF simvastatin 40 mg tablet 40 mg PO QPM Qty: 90 3RF famotidine 20 mg tablet 20 mg PO BID 21 Days Qty: 42 0RF ondansetron 4 mg tablet,disintegrating 4 mg PO Q8H PRNQty: 30 0RF Discharge Instructions Additional Instructions: Your imaging done on the do not show any significant concerning findings. You can call physical therapy to arrange to see them. Follow-up with your primary care provider. If you feel more ill or have new symptoms such as persistent vomiting return to the emergency department for reevaluation Stand Alone Forms: Physical Therapy Referral HPI General Mode of arrival: ambulatory . Date/Time Provider Initiated Documentation: 06/05/25 10:59 . Limitations to Documentation: no limitations . Information obtained by: patient . History of Present Illness 70 year old M presents to the emergency department with the chief complaint of wants results of imaging done over a week ago, Patient reports radiation to back. and it has been constant. No relieving factors improve symptom(s), No exacerbating factors reported . Patient notes no other symptoms.. Patient did receive the following treatments prior to arrival, none Related Data Home Medications ?Medication ?Instructions ?Recorded ?Confirmed blood sugar diagnostic #100 ea 09/29/19 05/16/25 lancets 33 gauge [facility] e[facility] Lancets) aspirin 81 mg chewable tablet 81 mg PO DAILY #90 tabs 06/14/24 06/05/25 metformin 750 mg tablet,extended 1,500 mg (2 x 750 mg) PO DAILY 06/14/24 06/05/25 release 24 hr #180 tabs nystatin 100,000 unit/gram topical 1 applic topical TI D PRN tinea #60 07/14/24 06/05/25 powder (Nyamyc) grams urea 40 % topical cream 1 applic topical DAILY #85 g tiffany 07/14/24 06/05/25 mupirocin 2 % topical ointment 1 applic topical BID-TI D #15 grams 09/07/24 06/05/25 ketoconazole 2 % topical cream 1 applic topical DAILY #120 grams 11/22/24 06/05/25 losartan 100 1 tab PO DAILY #90 tabs 05/0 07/0306/05/25 mg-hydrochlorothiazide 25 mg tablet (Hyzaar) simvastatin 40 mg tablet 40 mg PO QPM #90 tabs 06/05/25 famotidine 20 mg tablet 20 mg PO BID 3 weeks #42 tab s 05/22/25 06/05/25 ondansetron 4 mg disintegrating 4 mg PO Q8H PRN #30 ta bs 05/22/25 06/05/25 tablet Previous Rx's ?Medication ?Instructions ?Recorded blood sugar diagnostic #100 ea 09/29/19 lancets 33 gauge [facility] ea 09/29/19 Lancets) aspirin 81 mg chewable tablet 81 mg PO DAILY #90 tabs 06/14/24 metformin 750 mg tablet,extended 1,500 mg (2 x 750 mg) PO DAILY 06/14/24 release 24 hr #180 tabs nystatin 100,000 unit/gram topical 1 applic topical TI D PRN tinea #60 07/14/24 powder (Nyamyc) grams urea 40 % topical cream 1 applic topical DAILY #85 g tiffany 07/14/24 mupirocin 2 % topical ointment 1 applic topical BID-TI D #15 grams 09/07/24 ketoconazole 2 % topical cream 1 applic topical DAILY #120 grams 11/22/24 losartan 100 1 tab PO DAILY #90 tabs 05/0 8/25 mg-hydrochlorothiazide 25 mg tablet (Hyzaar) simvastatin 40 mg tablet 40 mg PO QPM #90 tabs famotidine 20 mg tablet 20 mg PO BID 3 weeks #42 tab s 05/22/25 ondansetron 4 mg disintegrating 4 mg PO Q8H PRN #30 ta bs 05/22/25 tablet Allergies Allergy/AdvReac Type Severity Reaction Status Date / Time lisinopril Allergy Mild dizzy, dry Verified 06/05/25 11:00 mouth naproxen AdvReac Intermediate Other (See Verified 06/05/25 11:00 Comment) General Stated Complaint: Recheck BRIANNE: 3 Review of Systems All systems reviewed & are unremarkable except as noted in HPI and below Constitutional Constitutional: Denies chills, Denies fever(s) and Denies weakness Cardiovascular Cardiovascular: Denies chest pain and Denies dyspnea Respiratory Respiratory: Denies cough and Denies dyspnea Gastrointestinal Gastrointestinal: Denies abdominal pain, Denies nausea and Denies vomiting Musculoskeletal Musculoskeletal: Reports back pain Neurologic Neurologic: Denies weakness Exam Const General: no acute distress Orientation: alert HENWA Head: normal to inspection Ears: external ears normal General nose exam: external nose normal Mouth: moist mucous membranes Eyes General: appearance normal, both eyes and all related structures Neck Neck: normal visual inspection Resp Effort & Inspection: normal respiratory effort and able to speak in complete sentences Cardio Rate: regular rate Back/Spine/Pelvis Back: no CVA tenderness Thoracic/Lumbar Spine: No thoracic spinal tenderness and No lumbar spinal tenderness Skin General skin exam: no rashes or lesions noted Neuro General: patient alert and patient oriented x3 Extrem General: normal to inspection Psych Mental Status: mental status grossly normal Course Vital Signs Vital signs: Vital Signs Temperature 36.5 C 06/05/25 10:54 Pulse 70 06/05/25 10:54 Respiratory Rate 14 06/05/25 10:54 Blood Pressure 173/95 H 06/05/25 10:54 Pulse Oximetry 98 06/05/25 10:54 Temperature 36.5 C 06/05/25 10:54 Temperature Source Tympanic 06/05/25 10:54 Pulse 70 06/05/25 10:54 Respiratory Rate 14 06/05/25 10:54 Blood Pressure 173/95 H 06/05/25 10:54 Blood Pressure Position Sitting 06/05/25 10:54 Pulse Oximetry 98 06/05/25 10:54 Oxygen Delivery Method Room Air 06/05/25 10:54 Oxygen Flow Rate 0 06/05/25 10:54 Pain Level 5 06/05/25 10:54 Medical Decision Making 70-year-old male with history of degenerative disc disease who comes in with request to go over results. He was seen on the of this month chest x-ray and an abdominal pelvis CT which did not show anything concerning. He says that his lower back pain he was having is improved. He denies any changes in the bowel or bladder habits, no fevers, no abdominal pain currently. He is walking with a normal gait, he says the pain is in his lower back but does not have any pain currently. He has no visible or palpable deformities of the back. Given his symptoms are improving I do not feel any imaging or other testing is indicated at this time. He has no saddle anesthesia or findings on history or exam to suggest cauda equina or spinal epidural abscess so I do not feel an MRI is indicated. I will give him referral to see physical therapy, return precautions given [facility] All Active Problems (Updated 06/05/25 @ 11:30 by Rc Thornton MD) Back pain (Acute) Abdominal pain of unknown cause (Acute) Meniscal injury (Acute) Splinter (Acute) Blepharitis of eyelid of left eye (Acute) Corns and callosities (Acute) PVD (peripheral vascular disease) (Chronic) Onychomycosis (Acute) Sees Dr Jayla casper Pigmented skin lesion (Acute) Nail dystrophy (Acute) Marijuana dependence (Chronic) daily use if available Depression (Chronic) Phobia, unspecified (Chronic) fear of mail. 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 Father , never met biological No problems noted. Social History (Updated 04/14/25 @ 14:30 by Molly King LPN) Smoking/Tobacco Use Status: Never Smoking risk assessment performed?: Yes Alcohol Intake: current Alcohol Intake frequency: holidays/special occasions only Alcohol type: beer Drug use: Occasionally Substance use type: marijuana Adopted: Yes Caregiver/Support person: No Foster care: No Household members: none Housing: house Communication Needs: Hard of Hearing Education Level: vocational Do you need help understanding health information?: Rarely current occupation: Self-Employed, [employer] Accountant Pets and animals: No (His dog recently) Do you think of yourself as: straight/heterosexual Current gender identity: male What is your relationship status?: refused to answer How often do you talk on the phone with friends or family?: decline to answer How often do you get together with friends or relatives?: decline to answer How often do you attend mormonism or yazidi services?: decline to answer Do you belong to any clubs or organized social groups?: decline to answer Panel score (0-1 are the most socially isolated patients): 0 What type of physical activity do you participate in: other Details: 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
[2025-06-05 11:53] VITALS: BP 137/71; PULSE 60; RESP 20; TEMP 36.7; O2SAT 95
== END 2025-06-05 11:54 | disposition home or self-care (01) ==
PROVIDERS: Emergency Provider Emergency Medicine; PCP Family Medicine
DX: M54.50 Low back pain, unspecified (principal); I10 Essential (primary) hypertension; E78.5 Hyperlipidemia, unspecified; E11.9 Type 2 diabetes mellitus without complications; I25.10 Atherosclerotic heart disease of native coronary artery without angina pectoris; Z79.84 Long term (current) use of oral hypoglycemic drugs; Z79.82 Long term (current) use of aspirin
CPT/HCPCS: 99282

== ENCOUNTER → 2025-07-25 09:44 | Outpatient (BNVA) | payer MEDICARE, MEDICAID, SELFPAY | PROVIDERS: PCP Family Medicine; Referring Provider Family Medicine; Visit Provider Podiatrist | DX: E11.8 Type 2 diabetes mellitus with unspecified complications (principal); I73.89 Other specified peripheral vascular diseases; B35.1 Tinea unguium; L84 Corns and callosities | CPT/HCPCS: 99213 ==

== ENCOUNTER 2025-07-27 04:16 | Outpatient (CLI) | payer MEDICARE, MEDICAID, SELFPAY ==
--- NOTE | 2025-07-27 15:30 | DI.MRI_ITS ---
Exam(s) MR LOWER JOINT RT WO EXAM: MR LOWER JOINT RT WO CLINICAL HISTORY: Possible meniscal tear, rt knee sprain,[id number] TECHNIQUE: Multiplanar multisequence MRI of the knee was performed. COMPARISON: CR XR KNEE RT 3V AP,LAT,BETTY from 05/16/2025 FINDINGS: EFFUSION: There is a minimal amount of increased joint fluid. There is no prominent joint effusion and there is no Ivey cyst in the popliteal fossa. MARROW:There is subarticular signal abnormality in both sides of the trochlea/intercondylar level anteriorly, somewhat more so over lateral trochlea. The appearance of this subarticular bone edema implies an element of chronicity as are also some tiny cystic degenerative changes. There is articular cartilage thinning over this area. No distinct osteochondral defect. PATELLOFEMORAL COMPARTMENT: There is significant signal abnormality and chondromalacia in the retropatellar cartilage. There is full-thickness cartilage loss over the medial facet and there is more focal significant articular cartilage loss over the retropatellar cartilage of the lateral facet. There is mild edema in the patella. There are no distinct osteochondral defects in this compartment. There is no intraosseous signal to suggest recent patellar dislocation. There are no patellar retinacular tears. There is, however, some edema with in the partially visualized vastus medialis muscle. There is no other muscle edema around the knee Quadriceps and patellar tendons are intact. CRUCIATE LIGAMENTS: The anterior cruciate ligament is intact.The posterior cruciate ligament is intact. MEDIAL COMPARTMENT/MEDIAL MENISCUS: There are no tears of the medial meniscus evident.There is only mild thinning of the articular cartilage over the medial condyle with the exception of the findings described above at trochlear level... No osteochondral defect nor condylar osteophytes. MEDIAL COLLATERAL LIGAMENT: Mom LATERAL COMPARTMENT/LATERAL MENISCUS: There is no evidence of lateral meniscal tear.There are no chondral nor osteochondral defects over the main weight- bearing surface of the lateral femoral condyle. No osteophytes. ILIOTIBIAL BAND: Intact LATERAL COLLATERAL LIGAMENT COMPLEX: The fibular collateral ligament is intact. The biceps femoris tendon is intact.Popliteus muscle and tendon are intact. IMPRESSION: 1. Main findings here are in the anterior aspect of the knee where there is significant chondromalacia patella as well as articular cartilage loss over the corresponding both sides of the intercondylar trochlear groove that articulates with the patella. There is also significant subarticular edema in the trochlea, more so laterally than medially. There is only mild intraosseous edema in the patella. There is no evidence to suggest recent patellar dislocation. Mild edema is noted in the vastus medialis muscle but no evidence of medial patellar retinacular tear. 2. The quadriceps and patellar tendons appear unremarkable and there is no significant signal abnormality in the anterior intra-articular sub patellar Hoffa fat pad, 3. There are no meniscal tears nor cruciate ligament tear nor collateral ligament tears DATA REPOSITORY:
== END 2025-07-27 04:36 ==
LOC: DI 04:17
PROVIDERS: PCP Family Medicine; Visit Provider Family Medicine
DX: M22.41 Chondromalacia patellae, right knee (principal)
CPT/HCPCS: 73721

== ENCOUNTER 2025-08-29 10:24 | Outpatient (CLI) | payer MEDICARE, MEDICAID, SELFPAY ==
--- NOTE | 2025-08-29 09:00 | DI.RAD_ITS ---
Exam(s) XR SHOULDER RT COMPLETE 2+V EXAM: XR SHOULDER RT COMPLETE 2+V CLINICAL HISTORY: BILATERAL SHOULDER PAIN. TECHNIQUE: 2D digital imaging was performed of the right shoulder. Three images were obtained. Axillary and Grashey views were obtained. COMPARISON: CR XR SHOULDER RT COMPLETE 2+V from 01/03/2020 FINDINGS: BONES: No acute fracture is present. No bony destructive lesion is seen. JOINTS: No dislocation present. There is marked narrowing of the glenohumeral joint. There is subchondral sclerosis in flattening of the articular surfaces. There is an osteophyte at the inferior aspect of the humeral head. [id number] degenerative changes are seen at the acromioclavicular joint. SOFT TISSUE: Calcification is seen anterior to the joint which may represent a loose body. IMPRESSION: Marked osteoarthritis of the glenohumeral joint. DATA REPOSITORY: RADIATION DOSE DELIVERED:
--- NOTE | 2025-08-29 09:00 | DI.RAD_ITS ---
Exam(s) XR SHOULDER LT COMPLETE 2+V EXAM: XR SHOULDER LT COMPLETE 2+V CLINICAL HISTORY: BILATERAL SHOULDER PAIN. TECHNIQUE: 2D digital imaging was performed of the left shoulder. Two images were obtained. Grashey and axillary views were obtained. COMPARISON: CR XR SHOULDER LT COMPLETE 2+V from 01/03/2020 FINDINGS: BONES: No acute fracture is present. No bony destructive lesion is seen. JOINTS: No dislocation present. There are marked degenerative changes seen at the glenohumeral joint with loss of the joint space. There osteophytes seen at the humeral head. There is also flattening of the articular surface of the humeral head. There are mild degenerative changes seen at the acromioclavicular joint. SOFT TISSUE: Normal. IMPRESSION: Marked degenerative changes seen at the glenohumeral joint. DATA REPOSITORY: RADIATION DOSE DELIVERED:
== END 2025-08-29 10:25 | disposition home or self-care (01) ==
LOC: DIORS 10:24
PROVIDERS: PCP Family Medicine; Referring Provider Family Medicine; Visit Provider Student in an Organized Health Care Education/Training Program
DX: M25.511 Pain in right shoulder (principal); M25.512 Pain in left shoulder; M19.011 Primary osteoarthritis, right shoulder; M19.012 Primary osteoarthritis, left shoulder
CPT/HCPCS: 99213; 73030